=== PATIENT | male | born 1955 | race Caucasian/White ===

== ENCOUNTER 2017-08-30 20:02 | Inpatient (IN) | payer OTHER ==
[~2017-08-30] VITALS: Ht 190.5 cm; Wt 101.1 kg
[~2017-08-30 20:02] MED LIST: CEPH-460 PO; PERC5TAB12 PO; SIMV10TA PO; XARE20TA PO
[2017-08-30 20:16] VITALS: BP 145/85; PULSE 79; RESP 12; TEMP 98.5; O2SAT 98
[2017-08-30] MEDS ORDERED: SERT-132 PO (21:09)
[2017-08-30] MEDS ORDERED: BUSP10TA PO (21:09)
[2017-08-30 21:18] LABS: AUTOMATED NEUTROPHIL # 5.8 TH/MM3 (1.8-7.7); BASOPHIL % 0.6 % (0.0-2.0); EOSINOPHIL # 0.1 TH/MM3 (0-0.4); EOSINOPHIL % 1.6 % (0.0-4.0); HEMATOCRIT 44.8 % (39.0-51.0); HEMOGLOBIN 15.4 GM/DL (13.0-17.0); LYMPH % 22.7 % (9.0-44.0); MEAN CELL VOLUME 87.3 FL (80.0-100.0); MEAN CORPUSCULAR HGB CONC 34.3 % (32.0-36.0); MEAN PLATELET VOLUME 8.4 FL (7.0-11.0); MONO % 9.4 % (0.0-8.0); MONOCYTE # 0.8 TH/MM3 (0-0.9); NEUT % 65.7 % (16.0-70.0); PLATELET COUNT 267 TH/MM3 (150-450); RED BLOOD COUNT 5.13 MIL/MM3 (4.50-5.90); RED CELL DISTRIBUTION WIDTH 13.6 % (11.6-17.2); WHITE BLOOD COUNT 8.9 TH/MM3 (4.0-11.0)
[2017-08-30 21:32] LABS: ALBUMIN 4.3 GM/DL (3.4-5.0); AST (GOT) 30 U/L (15-37); BICARBONATE 23.6 MEQ/L (21.0-32.0); BLOOD UREA NITROGEN 18 MG/DL (7-18); CALCIUM 9.2 MG/DL (8.5-10.1); CHLORIDE 104 MEQ/L (98-107); CREATININE 1.37 MG/DL (0.60-1.30); GLOMERULAR FILTRATION RATE 52 ML/MIN (>89); GLUCOSE,RANDOM 92 MG/DL (74-106); SODIUM (NA) 140 MEQ/L (136-145)
[2017-08-30 21:34] LABS: ALT (GPT) 32 U/L (12-78)
[2017-08-30 21:44] LABS: ALKALINE PHOSPHATASE 69 U/L (45-117); TOTAL BILIRUBIN ADULT 1.3 MG/DL (0.2-1.0)
[2017-08-30 21:51] LABS: ACETAMINOPHEN LESS THAN 2.0 MCG/ML (10.0-30.0)
[2017-08-30] MEDS ORDERED: ZOLPIDEM TARTRATE 10 MG TAB PO ONE (22:15)
--- NOTE | 2017-08-30 22:16 | PD ---
HPI Chief Complaint: Depression Time Seen by Provider: 21:28 Travel History International Travel<30 days: No Contact w/Intl Traveler<30days: No Traveled to known affect area: No History of Present Illness HPI 62-year-old white male presents emergency department on a voluntary basis by PD for evaluation of depression with suicidal ideation. He states that he is battling 2 problems. One is that he has been suffering from what sounds to be dizziness/vertigo for the last several months. He states that he has been through multiple treatments, multiple doctor evaluations which have been unsuccessful. The patient also states that his girlfriend who had been dating for the last 2 years now at then deployed overseas and notified him by [employer] in that she no longer wants to continue the relationship. The patient states that he has been seen by psychiatrist in the last few weeks. He has been put on an antidepressant as well as an anxiety pill. He does not feel that these have been helping him thus far. He had talked to his sister by phone earlier today and had advised her that he had still felt depressed with suicidal thoughts. She had called the [place] police who responded encouraging him to come to the ER today. 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 He denies any true plan on self-harm. He denies any homicidal ideation. No fever chills. No chest pain or shortness of breath. He does complain of intermittent vertigo and dizziness. PFSH Past Medical History Narrative Medical Anxiety, depression, hypercholesterolemia, DVT, PE, chronic left knee pain Hx Anticoagulant Therapy: No Anxiety: Yes Depression: Yes Cardiovascular Problems: No High Cholesterol: Yes Chemotherapy: No Cerebrovascular Accident: No Diabetes: No Patient Takes Glucophage: No Diminished Hearing: No Deep Vein Thrombosis: Yes Insomnia: Yes Musculoskeletal: No Neurologic: No Psychiatric: No Respiratory: Yes (HX PULM EMBOLI) Triglycerides - High: Yes Tetanus Vaccination: < 5 Years ?: Not Past Surgical History Narrative Surgical Multiple knee arthroscopies, right shoulder arthroscopy, bilateral couple tunnel release Body Medical Devices: right total knee Joint Replacement: Yes (B/L KNEES) Other Surgery: Yes (7 surgeries -total knee replacment r leg, 6 surgeries leg) Social History Alcohol Use: No Tobacco Use: No Substance Use: No Allergies-Medications (Allergen,Severity, Reaction): Coded Allergies: No Known Allergies (Unverified , 02/29/16) Reported Meds & Prescriptions Reported Meds & Active Scripts Active Reported Sertraline (Sertraline HCl) 50 Mg Tab 50 Mg PO DAILY Buspirone (Buspirone HCl) 10 Mg Tab 10 Mg PO TID Simvastatin 10 Mg Tab 10 Mg PO DAILY Xarelto (Rivaroxaban) 20 Mg Tab 20 Mg PO DAILY Review of Systems General / Constitutional: No: Fever Eyes: No: Visual changes HENT: Positive: Vertigo, Lightheadedness, No: Headaches Cardiovascular: No: Chest Pain or Discomfort Respiratory: No: Shortness of Breath Gastrointestinal: No: Abdominal Pain Genitourinary: No: Dysuria Musculoskeletal: No: Pain Skin: No Rash Neurologic: No: Weakness Psychiatric: Positive: Anxiety, Depression, Suicidal Ideations, Mood Disorder, No: Disorder of Thought, Substance Abuse, Homicidal Ideation Endocrine: No: Polydipsia Hematologic/Lymphatic: No: Easy Bruising Physical Exam Narrative GENERAL: Well-nourished, well-developed patient. SKIN: Warm and dry. HEAD: Normocephalic and atraumatic. EYES: No scleral icterus. No injection or drainage. ENT: No nasal drainage noted. Mucous membranes pink. Airway patent. NECK: Supple, trachea midline. Moves head freely without obvious discomfort. CARDIOVASCULAR: Regular rate and rhythm without murmurs, gallops, or rubs. RESPIRATORY: Breath sounds equal bilaterally. No accessory muscle use. GASTROINTESTINAL: Abdomen soft, non-tender, nondistended. EXTREMITIES: No cyanosis or edema. BACK: Nontender without obvious deformity. No CVA tenderness. NEURO: Patient is alert and oriented. no sensorimotor deficits. Nonfocal. Normal speech. PSYCH: No delusions. No auditory or visual hallucinations. Data Data Last Documented VS Vital Signs Date Time Temp Pulse Resp B/P (MAP) Pulse Ox O2 Delivery O2 Flow Rate FiO2 08/30/17 20:16 98.5 79 12 145/85 (105) 98 Orders Orders Complete Blood Count With Diff (08/30/17 20:08) Comprehensive Metabolic Panel (08/30/17 20:08) Thyroid Stimulating Hormone (08/30/17 20:08) Psych Screen (08/30/17 20:08) Drug Screen, Random Urine (08/30/17 20:08) Alcohol (Ethanol) (6/12/18 20:08) Salicylates (Aspirin) (08/30/17 20:08) Tylenol (Acetaminophen) (08/30/17 20:08) Zolpidem (Ambien) (08/30/17 22:15) Labs Laboratory Tests Test 08/30/17 20:22 08/30/17 21:19 White Blood Count 8.9 TH/MM3 Red Blood Count 5.13 MIL/MM3 Hemoglobin 15.4 GM/DL Hematocrit 44.8 % Mean Corpuscular Volume 87.3 FL Mean Corpuscular Hemoglobin 30.0 PG Mean Corpuscular Hemoglobin Concent 34.3 % Red Cell Distribution Width 13.6 % Platelet Count 267 TH/MM3 Mean Platelet Volume 8.4 FL Neutrophils (%) (Auto) 65.7 % Lymphocytes (%) (Auto) 22.7 % Monocytes (%) (Auto) 9.4 % Eosinophils (%) (Auto) 1.6 % Basophils (%) (Auto) 0.6 % Neutrophils # (Auto) 5.8 TH/MM3 Lymphocytes # (Auto) 2.0 TH/MM3 Monocytes # (Auto) 0.8 TH/MM3 Eosinophils # (Auto) 0.1 TH/MM3 Basophils # (Auto) 0.0 TH/MM3 CBC Comment DIFF FINAL Differential Comment Blood Urea Nitrogen 18 MG/DL Creatinine 1.37 MG/DL Random Glucose 92 MG/DL Total Protein 8.0 GM/DL Albumin 4.3 GM/DL Calcium Level 9.2 MG/DL Alkaline Phosphatase 69 U/L Aspartate Amino Transf (AST/SGOT) 30 U/L Alanine Aminotransferase (ALT/SGPT) 32 U/L Total Bilirubin 1.3 MG/DL Sodium Level 140 MEQ/L Potassium Level 3.6 MEQ/L Chloride Level 104 MEQ/L Carbon Dioxide Level 23.6 MEQ/L Anion Gap 12 MEQ/L Estimat Glomerular Filtration Rate 52 ML/MIN Thyroid Stimulating Hormone 3rd Gen 1.120 uIU/ML Salicylates Level LESS THAN 1.7 MG/DL Acetaminophen Level LESS THAN 2.0 MCG/ML Ethyl Alcohol Level LESS THAN 3 MG/DL Urine Opiates Screen NEG Urine Barbiturates Screen NEG Urine Amphetamines Screen NEG Urine Benzodiazepines Screen NEG Urine Cocaine Screen NEG Urine Cannabinoids Screen NEG MDM Medical Decision Making Medical Screen Exam Complete: Yes Emergency Medical Condition: Yes Medical Record Reviewed: Yes Differential Diagnosis MDM: High Differential diagnoses: Schizophrenia, schizoaffective disorder, bipolar, anxiety, depression, adjustment reaction, mood disorder NOS, ODD, depressive disorder NOS, dementia, dementia with agitation, psychosis NOS, substance induced mood disorder, DMDD, Asperger syndrome, infection,electrolyte abnormality, malingering. Narrative Course Mental health screening discussed with the patient. Psychiatric screen ordered. The patient is given Ambien 10 mg p.o. The patient has been medically cleared. This is medical clearance for psychiatric admission Diagnosis Primary Impression: Medical clearance for psychiatric admission Condition: Stable Carlos Carson Aug 30, 2017 22:16
[2017-08-30] MEDS ORDERED: hydrOXYzine HCL 50 MG TAB PO PRN (23:45)
[2017-08-30] MEDS ORDERED: ZOLP10TA3 PO (23:45)
[2017-08-30] MEDS ORDERED: ACETAMINOPHEN 325 MG TAB PO PRN (23:45)
[2017-08-30] MEDS ORDERED: ALUMINUM/MAGNESIUM/SIMETH 30 ML CUP PO PRN (23:45)
[2017-08-30] MEDS ORDERED: MAGNESIUM HYDROXIDE SUSP 30 ML CUP PO PRN (23:45)
[2017-08-31] MEDS ORDERED: RIVAROXABAN 20 MG TAB PO SCH ×2 (00:15→09:00)
[2017-08-31] MEDS ORDERED: busPIRone HCL 10 MG TAB PO SCH (00:15)
[2017-08-31] MEDS ORDERED: PRAVASTATIN SOD 20 MG TAB PO SCH ×2 (00:15→09:00)
[2017-08-31 00:30] VITALS: BP 145/92; PULSE 68; RESP 20; TEMP 98.1; O2SAT 96
[2017-08-31 06:26] VITALS: BP 133/63; PULSE 69; RESP 20; TEMP 98; O2SAT 100
[2017-08-31 08:29] LABS: BICARBONATE 26.5 MEQ/L (21.0-32.0); CALCIUM 9.1 MG/DL (8.5-10.1); CREATININE 1.31 MG/DL (0.60-1.30)
[2017-08-31] MEDS ORDERED: INFLUENZA VIRUS VACCINE (QUADRIVALENT) 0.5 ML SYR IM ONE (09:00)
[2017-08-31] MEDS ORDERED: SERTRALINE HCL 50 MG TAB PO SCH (09:00)
[2017-08-31] MEDS ORDERED: NICOTINE 21 MG/24 HR PATCH T-DERMAL SCH (09:00)
[2017-08-31] MEDS: busPIRone HCL 10 MG TAB PO SCH ×2 (09:09→13:00)
--- NOTE | 2017-08-31 14:10 | HHI.HP ---
Provisional Diagnosis Admission Date Aug 30, 2017 at 23:37 Mildred I. 1. Adjustment disorder with depressed mood Mildred II. Deferred Certification of Person's Competence To Provide Express and Informed Consent I have personally examined Lm Rossi , a person being served at [facility] on, Aug 31, 2017 14:10. Express and informed consent means consent voluntarily given in writing, by a competent person, after sufficient explanation and disclosure of the subject matter involved to enable the person to make a knowing and willful decision without any element of force, fraud, deceit, duress, or other form of constraint or coercion. This person is 18 years of age or older, is not now known to be incompetent to consent to treatment with a guardian advocate, and does not have a health care surrogate or proxy currently making medical treatment decisions. I have found this person to be one of the following: [x] Competent to provide express and informed consent, as defined above, for voluntary admission to this facility and is competent to provide express and informed consent for treatment. He/she has the consistent capacity to make well reasoned, willful, and knowing decisions concerning his or her medical or mental health treatment. The person fully and consistently understands the purpose of the admission for examination/placement and is fully capable of personally exercising all rights [place] Incompetent to provide express and informed consent to voluntary admission, and this is incompetent to provide express and informed consent to treatment. The person must be transferred to involuntary status and a petition for a guardian advocate filed with the Circuit Court. [] Refusing to provide express and informed consent to voluntary admission but is competent to provide express and informed consent for treatment. The person must be discharged or transferred to involuntary status. Form shall be completed within 24 hours of a person's arrival at the receiving facility and filed in the clinical record of each person: 1. Admitted on a voluntary basis 2. Permitted to provide express and informed consent to his/her own treatment 3. Allowed to transfer from involuntary to voluntary status 4. Prior to permitting a person to consent to his or her own treatment after having been previously found incompetent to consent to treatment. History of Present Illness Capacity: Has Capacity Psych Chief Complaint: Depression HPI Mr. Rossi is a 62-year-old male with no reported previous psychiatric diagnoses who presented to the ED on a voluntary basis for psychiatric evaluation. He complained to the ED provider of depression and possibly some thoughts of self-harm, although he denied any suicidal plan. Reviewing the electronic medical record, I see no previous psychiatric contact within our system. Patient seen and examined with nurse. Chart reviewed. Case discussed with nursing staff. No evidence of any suicidality or homicidality while the patient has been under observation on the unit, nor has there been any evidence of behavioral disturbance. There has been no evidence of self-care deficit either. On my examination today, the patient says that he has 2 main stressors : Episodes of dizziness and ataxia starting 15 months ago and breaking up with his girlfriend of 2-1/2 years about 6 months ago. He says that he was discussing these stressors with his sister over the phone and said "I feel like crap" and sister recommended that he seek psychiatric evaluation. The patient adamantly denies any suicidal or homicidal ideation, intent or plan and contracts for safety now. He says that he wants to live for his daughters, his sisters, his 5 grandchildren, his new house and his pet cat. He reports feeling a lot of frustration because of inability to obtain a diagnosis for his physical complaints, but I can elicit no symptoms consistent with severe depressive or hypomanic/manic episode. He denies any audiovisual hallucinations. I can elicit no delusional beliefs. There is no evidence of impairment in reality construction. The remainder of the psychiatric ROS is negative. No acute physical complaints. Patient is requesting discharge from the inpatient psychiatric unit today. With the patient's permission, I have obtained collateral information from his neighbor who knows him well Gaye Lakisha at [phone]. Gaye has no concerns about the patient being a risk of harm to self or others and is comfortable with him being discharged home today. She notes that she plans to stay with him at his house for a few days to ensure that he is doing well. She knows of no previous suicidal statements or suicide attempts by the patient. She confirms that the patient's firearms have been secured outside of his home in another neighbor's house. I have educated Gaye regarding mechanisms in place to have the patient brought back to the ED for further psychiatric evaluation, should the need arise. She will be around to retrieve the patient this afternoon. Past psychiatric history: Patient reports that he has never received a psychiatric diagnosis. He did recently begin seeing a female psychiatrist whose name he cannot recall who has placed him on Zoloft and BuSpar, although he is not sure if these are doing much. He reports that he was psychiatrically admitted in 1985 related to issues with a woman. He denies any history of suicide attempts. Family history: The patient denies any family history of mental illness or suicide. Chemical dependency history: The patient denies any abuse of drugs or alcohol. Social history: Patient has a sister in [place]. He recently broke up with his girlfriend of 2-1/2 years. He has been twice before and has 2 children from his first marriage. 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 He denies any history. Denies any legal history. He is disabled secondary to physical issues. He is a [employer]. He notes that his guns have been secured in a neighbor's safe. He has never had a suicide plan involving a gun. He denies any history of abuse or mistreatment. Review of Systems Except as stated in HPI: all other systems reviewed are Neg Past Family Social History Coded Allergies: No Known Allergies (Unverified , 02/29/16) Past Medical History See electronic medical record Reported Medications Zolpidem (Zolpidem) 10 Mg Tab, 10 MG PO HS, TAB 0 Refills 08/30/17 Sertraline (Sertraline) 50 Mg Tab, 50 MG PO DAILY, #30 TAB 0 Refills 08/30/17 Buspirone (Buspirone) 10 Mg Tab, 10 MG PO TID for Anxiety, TAB 0 Refills 08/30/17 Simvastatin (Simvastatin) 10 Mg Tab, 10 MG PO DAILY for Cholesterol Management, #30 TAB 0 Refills 02/29/16 Rivaroxaban (Xarelto) 20 Mg Tab, 20 MG PO DAILY for Blood Clot Prevention, TAB 0 Refills 02/29/16 Discontinued Scripts Oxycodone-Acetaminophen (Percocet) 5-325 mg Tab, 1 TAB PO Q6H Y for PAIN, #20 TAB 0 Refills Prov:Melquiades Acevedo MD 02/29/16 Cephalexin (Keflex) 500 Mg Cap, 500 MG PO Q6H for Infection for 7 Days, CAP 0 Refills Prov:Melquiades Acevedo MD 02/29/16 Current Medications Medications (Trade) Dose Ordered Sig/Felipe Route Start Time Stop Time Status Last Admin (Atarax) 50 mg Q6H PRN PO 08/30/17 23:45 (Tylenol) 650 mg Q4H PRN PO 08/30/17 23:45 (Milk Of Magnesia Liq) 30 ml DAILY PRN PO 08/30/17 23:45 (Mag-Al Plus Susp Liq) 30 ml Q6H PRN PO 08/30/17 23:45 (Habitrol 21 Mg Patch.24 Hr) 1 patch DAILY T-DERMAL 08/31/17 09:00 Miscellaneous Information 1 HS T-DERMAL 08/31/17 21:00 (Xarelto) 20 mg DAILY PO 08/31/17 09:00 08/31/17 09:45 (Pravachol) 20 mg DAILY PO 08/31/17 09:00 08/31/17 09:09 (Buspar) 10 mg TID PO 08/31/17 09:00 08/31/17 09:09 (Zoloft) 50 mg DAILY PO 08/31/17 09:00 08/31/17 09:08 (Ambien) 10 mg HS PO 08/31/17 21:00 Patient's Strengths (min. 2) Attending to basic needs. Verbally fluent. Physical Exam Physical exam completed by ED provider. On my examination today, the patient appears to be in no acute physical distress. No motor abnormalities noted. Labs and vital signs reviewed: Vital Signs Vital Signs Date Time Temp Pulse Resp B/P (MAP) Pulse Ox O2 Delivery O2 Flow Rate FiO2 08/31/17 06:26 98.0 69 20 133/63 (86) 100 Lab Results Test 08/30/17 20:22 08/30/17 21:19 08/31/17 07:40 White Blood Count 8.9 TH/MM3 Red Blood Count 5.13 MIL/MM3 Hemoglobin 15.4 GM/DL Hematocrit 44.8 % Mean Corpuscular Volume 87.3 FL Mean Corpuscular Hemoglobin 30.0 PG Mean Corpuscular Hemoglobin Concent 34.3 % Red Cell Distribution Width 13.6 % Platelet Count 267 TH/MM3 Mean Platelet Volume 8.4 FL Neutrophils (%) (Auto) 65.7 % Lymphocytes (%) (Auto) 22.7 % Monocytes (%) (Auto) 9.4 % Eosinophils (%) (Auto) 1.6 % Basophils (%) (Auto) 0.6 % Neutrophils # (Auto) 5.8 TH/MM3 Lymphocytes # (Auto) 2.0 TH/MM3 Monocytes # (Auto) 0.8 TH/MM3 Eosinophils # (Auto) 0.1 TH/MM3 Basophils # (Auto) 0.0 TH/MM3 CBC Comment DIFF FINAL Differential Comment Blood Urea Nitrogen 18 MG/DL 16 MG/DL Creatinine 1.37 MG/DL 1.31 MG/DL Random Glucose 92 MG/DL 106 MG/DL Total Protein 8.0 GM/DL Albumin 4.3 GM/DL Calcium Level 9.2 MG/DL 9.1 MG/DL Alkaline Phosphatase 69 U/L Aspartate Amino Transf (AST/SGOT) 30 U/L Alanine Aminotransferase (ALT/SGPT) 32 U/L Total Bilirubin 1.3 MG/DL Sodium Level 140 MEQ/L 138 MEQ/L Potassium Level 3.6 MEQ/L 3.9 MEQ/L Chloride Level 104 MEQ/L 101 MEQ/L Carbon Dioxide Level 23.6 MEQ/L 26.5 MEQ/L Anion Gap 12 MEQ/L 11 MEQ/L Estimat Glomerular Filtration Rate 52 ML/MIN 55 ML/MIN Thyroid Stimulating Hormone 3rd Gen 1.120 uIU/ML Salicylates Level LESS THAN 1.7 MG/DL Acetaminophen Level LESS THAN 2.0 MCG/ML Ethyl Alcohol Level LESS THAN 3 MG/DL Urine Opiates Screen NEG Urine Barbiturates Screen NEG Urine Amphetamines Screen NEG Urine Benzodiazepines Screen NEG Urine Cocaine Screen NEG Urine Cannabinoids Screen NEG Mental Status Examination Appearance: Appropriate Consciousness: Alert Orientation: x4 Motor Activity: Normal gait Speech: Unremarkable Language: Adequate Fund of Knowledge: Adequate Attention and Concentration: Adequate Memory: Unremarkable (Grossly intact on clinical exam) Mood: Appropriate Affect: Appropriate, Euthymic Thought Process & Associations: Intact, Logical, Goal directed, Linear Thought Content: Appropriate Hallucination Type: None Delusion Type: None Suicidal Ideation: No Suicidal Plan: No Suicidal Intention: No Homicidal Ideation: No Homicidal Plan: No Homicidal Intention: No Insight: Adequate Judgment: Adequate Assessment & Plan Problem List: (1) Adjustment disorder with depressed mood ICD Codes: F43.21 - Adjustment disorder with depressed mood Assessment & Plan 62-year-old male with psychiatric history as detailed above who is presently voluntarily admitted to the inpatient psychiatric unit. He is requesting discharge today. He denies any suicidal or homicidal ideation. There is no evidence of severely unstable mental illness as defined under the [place] act in this patient at this time. There is no evidence of self-care deficit. I have obtained reassuring collateral information from the patient's neighbor. Synthesizing this information and based on the available evidence, I copy manager that the patient does not meet criteria for involuntary psychiatric hospitalization. There is no evidence of imminent risk of harm to self or others, nor is there evidence of self-care deficit to support involuntary psychiatric hospitalization. He is requesting discharge from the inpatient unit today, and I have no basis to retain him over his objection. Patient will be discharged home today with psychiatric follow-up as arranged by counselor. Patient is also to follow up with primary care. I have counseled the patient regarding warning signs for need to return to the psychiatric emergency room as part of a general safety plan. Patient is to resume prior to admission medication regimen , and I have provided the patient with no prescriptions on discharge. This note serves also as my discharge summary. Kamlesh Andrade MD Aug 31, 2017 14:10
[2017-08-31] MEDS ORDERED: ZOLPIDEM TARTRATE 10 MG TAB PO SCH (21:00)
[2017-08-31] MEDS ORDERED: REMOVE OLD NICOTINE PATCH T-DERMAL SCH (21:00)
--- NOTE | 2017-09-01 18:27 | EKG ---
Date Performed: 08/31/2017 Time Performed: 13:48:46 PTAGE: 62 years EKG: Sinus rhythm NORMAL ECG PREVIOUS TRACING : 02/29/2016 15.47 Since the previous tracing, no significant change noted DOCTOR: Nely Fraser Interpretating Date/Time 09/01/2017 18:26:14
== END 2017-08-31 15:55 | disposition home or self-care (01) | DRG 881 ==
LOC: NEPJ 20:02 → NEDA 23:37 → H260 08-31 00:30
PROVIDERS: ADMIT Psychiatry & Neurology Psychiatry; ATTEND Psychiatry & Neurology Psychiatry
DX: F43.21 Adjustment disorder with depressed mood (principal); F41.9 Anxiety disorder, unspecified; R42 Dizziness and giddiness; E78.00 Pure hypercholesterolemia, unspecified; G47.00 Insomnia, unspecified; Z79.01 Long term (current) use of anticoagulants; Z86.711 Personal history of pulmonary embolism; Z96.653 Presence of artificial knee joint, bilateral
CPT/HCPCS: 80048; 80053; 80307; 84443; 85025; 93005